=== PATIENT | female | born 1960 | race Caucasian/White ===

== ENCOUNTER 2019-09-22 18:39 | Observation (INO) | payer OTHER ==
--- NOTE | 2019-09-22 19:13 | ERPHSYRPT ---
- History of Present Illness Time Seen by Provider: 09/22/19 18:50 Historian: patient Exam Limitations: no limitations Patient Subjective Stated Complaint: Pt began having chest pains approx 1800 and it radiates to her left shoulder blade and down her back, pt states that she has been tested for Covid 2 x in the past 8 weeks and has went to [facility] clinic 8 x in the past 8 weeks, Triage Nursing Assessment: Pt brought to the ER by her , hypertensive, rates chest pain as 8/10, no edema, pulses normal, started thyroid medicine 8 weeks ago, skin w/n/d Physician History: Patient is a 59-year-old female presents to our ED with complaints of chest pain. Chest pain tends to radiate to her left shoulder and down her back. Symptoms started approximately 6 PM this evening. Pain described as an ache. No associated nausea vomiting or diaphoresis. Symptoms are mild to moderate in intensity. Patient currently rates chest pain at 8 out of 10. Patient appears comfortable. Patient declined pain medication. Patient advised staff that she has been feeling ill for the past 8 weeks. She has been tested for COVID multiple times. Results were negative. Patient also reports that her symptoms started 8 weeks ago at the same time that she was started on Synthroid. Patient voices no other complaints at this time. Timing/Duration: today Activities at Onset: none Quality: aching Location: substernal Severity of Pain-Max: moderate Severity of Pain-Current: moderate Modifying Factors: Improves With: nothing Associated Symptoms: denies symptoms Prior Chest Pain/Cardiac Workup: no prior chest pain Aspirin Treatment Today: 325 mg x 1 Allergies/Adverse Reactions: hydrocodone [From Vicodin] Allergy (Intermediate, Verified 09/22/19 18:58) Home Medications: Cholecalciferol (Vitamin D3) [Vitamin D3] 50 mcg PO DAILY 09/22/19 [History] Clonazepam 0.5 mg [Klonopin 0.5 MG] 0.5 mg PO BIDPRN PRN 09/22/19 [History ] Cyanocobalamin (Vitamin B-12) [Vitamin B12] 5,000 mcg PO DAILY 09/22/19 [History ] Ferrous Sulfate 325 mg [Feosol 325 mg] 325 mg PO DAILY 09/22/19 [History] Fluticasone Propionate [Flonase NASAL] 2 spray NS DAILY 09/22/19 [History] Levothyroxine Sodium 25 Mcg [Synthroid 25 Mcg] 25 mcg PO DAILY 09/22/19 [ History] Omeprazole 40 mg PO DAILY 09/22/19 [History] Hx Influenza Vaccination/Date Given: No Travel Risk - International Travel Have you traveled outside of the country in past 3 weeks: No Have you or anyone close to you been diagnosed with or: No Do your reside in a community with a known COVID-19 case?: Yes If Yes where:: [place] - Coronavirus Screening Has patient experienced Coronavirus symptoms: Yes Symptoms experienced: respiratory symptoms (i.e.Cought,shortness of breath) - Review of Systems Constitutional: No Symptoms, No Fever, No Chills Eyes: No Symptoms Ears, Nose, & Throat: No Symptoms Respiratory: No Symptoms, No Cough, No Dyspnea Cardiac: No Symptoms, No Chest Pain, No Edema, No Syncope Abdominal/Gastrointestinal: No Symptoms, No Abdominal Pain, No Nausea, No Vomiting, No Diarrhea Genitourinary Symptoms: No Symptoms, No Dysuria Musculoskeletal: No Symptoms, No Back Pain, No Neck Pain Skin: No Symptoms, No Rash Neurological: No Symptoms, No Dizziness, No Focal Weakness, No Sensory Changes Psychological: No Symptoms Endocrine: No Symptoms Hematologic/Lymphatic: No Symptoms Immunological/Allergic: No Symptoms All Other Systems: Reviewed and Negative - Past Medical History Pertinent Past Medical History: Yes Endocrine Medical History: Hypothyroidism Other Medical History: Mitral valve prolapse - Past Surgical History Past Surgical History: Yes Other Surgical History: veins stripping in legs. cyst removed from finger. rt foot surgery - Social History Smoking Status: Never smoker Exposure to second hand smoke: No Drug Use: none Patient Lives Alone: No - Nursing Vital Signs Nursing Vital Signs: Initial Vital Signs Temperature 97.8 F 09/22/19 18:40 Pulse Rate 88 09/22/19 18:40 Respiratory Rate 23 09/22/19 18:40 Blood Pressure 170/89 09/22/19 18:40 O2 Sat by Pulse Oximetry 98 09/22/19 18:40 Pain Scale Pain Intensity 3 - Physical Exam SpO2: 98 - Course Nursing assessment & vital signs reviewed: No EKG Interpreted by Me: RATE, Sinus Rhythm, NORMAL AXIS, NORMAL INTERVALS ( Septal lead depression posterior EKG ordered to assess for possible posterior wall STEMI.), Other - Radiology Exams Chest X-ray Interpretation: Interpreted by me (Thorax, no pneumonia, no pleural effusion. No fractures. No acute process observed.) Ordered Tests: Active Orders 24 hr Category Date Time Status Grocery Sacker STAT Care 09/22/19 18:47 Active EKG-ER Only STAT Care 09/22/19 18:46 Active IV Insertion STAT Care 09/22/19 18:46 Active Pulse Oximetry (ED) STAT Care 09/22/19 18:46 Active CHEST 1 VIEW (PORTABLE) Stat Exams 09/22/19 18:47 Taken CBC W DIFF Stat Lab 09/22/19 19:01 Completed CMP Stat Lab 09/22/19 19:01 Completed NT PRO BNP Stat Lab 09/22/19 19:01 Completed TROPONIN Q3H Lab 09/22/19 19:01 Completed TROPONIN Q3H Lab 09/22/19 22:00 Ordered TROPONIN Q3H Lab 09/23/19 01:00 Ordered TROPONIN Q3H Lab 09/23/19 04:00 Ordered TROPONIN Q3H Lab 09/23/19 07:00 Ordered TSH, 3RD Generation Stat Lab 09/22/19 19:10 Completed Lab/Rad Data: Laboratory Result Diagrams 09/22/19 19:01 09/22/19 19:01 Laboratory Results 09/22/19 09/22/19 09/22/19 Range/Units 19:10 19:01 19:01 WBC (4.0-10.5) K/mm3 RBC (4.1-5.4) M/mm3 Hgb (12.0-16.0) gm/dl Hct (35-47) % MCV (78-100) fl MCH (26-32) pg MCHC (32-36) g/dl RDW (11.5-14.0) % Plt Count (150-450) K/mm3 MPV (7.5-11.0) fl Gran % (36.0-66.0) % Eos # (Auto) (0-0.5) Absolute Lymphs (auto) (1.0-4.6) Absolute Monos (auto) (0.0-1.3) Lymphocytes % (24.0-44.0) % Monocytes % (0.0-12.0) % Eosinophils % (0.00-5.0) % Basophils % (0.0-0.4) % Absolute Granulocytes (1.4-6.9) Basophils # (0-0.4) Sodium 139 (137-145) mmol/L Potassium 4.3 (3.5-5.1) mmol/L Chloride 104 (98-107) mmol/L Carbon Dioxide 24 (22-30) mmol/L Anion Gap 15.2 H (5-15) MEQ/L BUN 12 (7-17) mg/dL Creatinine 0.85 (0.52-1.04) mg/dL Estimated GFR > 60.0 ML/MIN Glucose 116 H (74-106) mg/dL Calcium 9.1 (8.4-10.2) mg/dL Total Bilirubin 0.40 (0.2-1.3) mg/dL AST 20 (14-36) U/L ALT 16 (0-35) U/L Alkaline Phosphatase 65 (38-126) U/L Troponin I < 0.012 (0.000-0.034) ng/mL NT-Pro-B Natriuret Pep 88.8 (0-900) pg/mL Serum Total Protein 6.9 (6.3-8.2) g/dL Albumin 3.8 (3.5-5.0) g/dL TSH 3rd Generation 1.480 (0.47-4.68) mIU/L 09/22/19 Range/Units 19:01 WBC 12.0 H (4.0-10.5) K/mm3 RBC 4.57 (4.1-5.4) M/mm3 Hgb 13.2 (12.0-16.0) gm/dl Hct 39.6 (35-47) % MCV 86.7 (78-100) fl MCH 28.9 (26-32) pg MCHC 33.3 (32-36) g/dl RDW 13.9 (11.5-14.0) % Plt Count 348 (150-450) K/mm3 MPV 9.9 (7.5-11.0) fl Gran % 60.8 (36.0-66.0) % Eos # (Auto) 0.27 (0-0.5) Absolute Lymphs (auto) 3.46 (1.0-4.6) Absolute Monos (auto) 0.90 (0.0-1.3) Lymphocytes % 29.0 (24.0-44.0) % Monocytes % 7.5 (0.0-12.0) % Eosinophils % 2.3 (0.00-5.0) % Basophils % 0.4 (0.0-0.4) % Absolute Granulocytes 7.27 H (1.4-6.9) Basophils # 0.05 (0-0.4) Sodium (137-145) mmol/L Potassium (3.5-5.1) mmol/L Chloride (98-107) mmol/L Carbon Dioxide (22-30) mmol/L Anion Gap (5-15) MEQ/L BUN (7-17) mg/dL Creatinine (0.52-1.04) mg/dL Estimated GFR ML/MIN Glucose (74-106) mg/dL Calcium (8.4-10.2) mg/dL Total Bilirubin (0.2-1.3) mg/dL AST (14-36) U/L ALT (0-35) U/L Alkaline Phosphatase (38-126) U/L Troponin I (0.000-0.034) ng/mL NT-Pro-B Natriuret Pep (0-900) pg/mL Serum Total Protein (6.3-8.2) g/dL Albumin (3.5-5.0) g/dL TSH 3rd Generation (0.47-4.68) mIU/L - Progress Progress: improved Air Movement: good Progress Note: 09/22/19 20:28 Patient reassessed. She feels well. Patient declined pain medication. Case discussed with Dr. Goodman who accepts admission to observation for cardiac rule out. Plan of care discussed with patient. Patient agrees to admission to [facility] for further evaluation and treatment. Blood Culture(s) Obtained: No Antibiotics given: No Discussed with : Ashanti Will see patient in: hospital (observation) Counseled pt/family regarding: lab results, diagnosis, rad results - Departure Departure Disposition: Observation Clinical Impression: Acute coronary syndrome Condition: Stable Critical Care Time: No Referrals: TRACEY GUTIERREZ MD [Primary Care Provider] -
[2019-09-22 19:14] LABS: Absolute Neutrophil Ct (ANC) 7.27 (1.4-6.9); BASOPHIL % 0.4 % (0.0-0.4); Basophil (Absolute #) 0.05 (0-0.4); Eosinophil % 2.3 % (0.00-5.0); Eosinophil (Absolute #) 0.27 (0-0.5); Hematocrit 39.6 % (35-47); Hemoglobin 13.2 gm/dl (12.0-16.0); Lymphocyte (Absolute #) 3.46 (1.0-4.6); Mean Cell Volume 86.7 fl (78-100); Mean Corpuscular Hemoglobin 28.9 pg (26-32); Mean Corpuscular Hgb Concent. 33.3 g/dl (32-36); Mean Platelet Volume 9.9 fl (7.5-11.0); Monocytes % 7.5 % (0.0-12.0); Neutrophil % 60.8 % (36.0-66.0); Platelet Count 348 K/mm3 (150-450); Red Blood Count 4.57 M/mm3 (4.1-5.4); Red Cell Distribution Width 13.9 % (11.5-14.0)
[2019-09-22 19:36] LABS: ALBUMIN 3.8 g/dL (3.5-5.0); ALKALINE PHOSPHATASE 65 U/L (38-126); ANION GAP 15.2 MEQ/L (5-15); BLOOD UREA NITROGEN 12 mg/dL (7-17); CHLORIDE 104 mmol/L (98-107); Calcium 9.1 mg/dL (8.4-10.2); Carbon Dioxide 24 mmol/L (22-30); Creatinine 1 0.85 mg/dL (0.52-1.04); Glucose 116 mg/dL (74-106); NT PRO BNP 88.8 pg/mL (0-900); Potassium 4.3 mmol/L (3.5-5.1); SGOT/AST 20 U/L (14-36); SGPT/ALT 16 U/L (0-35); SODIUM 139 mmol/L (137-145); Total Protein 6.9 g/dL (6.3-8.2)
[2019-09-22] MEDS ORDERED: Zofran 4 MG/2 ML VIAL IV PRN (20:49)
[2019-09-22] MEDS ORDERED: MAALOX ES 30 ML UNIT DOSE PO PRN (20:49)
[2019-09-22] MEDS ORDERED: MILK OF MAGNESIA 30 ML PO PRN (20:49)
[2019-09-22] MEDS ORDERED: TYLENOL 325 MG PO PRN (20:49)
[2019-09-22] MEDS ORDERED: Senokot-S Tablet PO PRN (20:49)
[2019-09-22] MEDS ORDERED: Klonopin 0.5 MG PO PRN (23:02)
[2019-09-22] MEDS ORDERED: Zestril 10 MG ONE (23:04)
[2019-09-23 08:23] LABS: Risk Ratio 4.1
--- NOTE | 2019-09-23 08:25 | XRAY ---
Indication: Chest pain 8 weeks. Exhaustion. Comparison: None Portable chest demonstrates normal heart and lungs. Bony thorax intact with minimal degenerative changes.
[2019-09-23 12:02] VITALS: BP 130/60; PULSE 76; O2SAT 97
--- NOTE | 2019-09-23 12:15 | PCM.SSS ---
History of Present Illness - Chief Complaint Chief Complaint: acute coronary syndrome History of Present Illness: is a 59 year old female. sore throat slight cough 8 weeks ago. Increased phlegm. Covid test x2 prilosec flonase phlegm is better. Patient took mucinex night time burning chest pain Severe pain. Last night burning pain up arm down back. Tues. Started synthroid in jun. Side effects of synthroid. pain in arm chest pain bp 120/80. Never sick a day in her life and anxious. - Review of Systems Constitutional: Chills, Fatigue, Weight Loss (Lost 8 pounds ), No Fever, No Night Sweats Eyes: No Symptoms Ears, Nose, & Throat: Throat Swelling, Hoarse (in morning), No Hearing Changes, No Tinnitus, No Sinus Drainage, No Snoring Respiratory: No Cough, No Orthopnea, No Short Of Breath, No Wheezing Cardiac: Chest Pain, Palpitations, No Edema, No Syncope Abdominal/Gastrointestinal: Abdominal Pain, No Nausea, No Vomiting, No Diarrhea , No Constipation, No Dysphagia, No Appetite Changes Genitourinary Symptoms: No Dysuria Musculoskeletal: Back Pain, Joint Pain (Knee pain) Skin: No Cellulitis, No Rash, No Dryness Neurological: Headache, Tremors (mild tremors), No Parasthesia Psychological: Anxiety, No Alcohol Abuse, No Drug Abuse, No Depression, No Suicidal Ideations, No Homicidal Ideations Endocrine: Other (hypothyroidism) Hematologic/Lymphatic: Anemia Medications & Allergies Home Medications: Home Medication List Cholecalciferol (Vitamin D3) [Vitamin D3] 50 mcg PO DAILY 09/22/19 [History Confirmed 09/22/19] Clonazepam 0.5 mg [Klonopin 0.5 MG] 0.5 mg PO BIDPRN PRN 09/22/19 [ History Confirmed 09/22/19] Cyanocobalamin (Vitamin B-12) [Vitamin B12] 5,000 mcg PO DAILY 09/22/19 [ History Confirmed 09/22/19] Ferrous Sulfate 325 mg [Feosol 325 mg] 325 mg PO DAILY 09/22/19 [History Confirmed 09/22/19] Fluticasone Propionate [Flonase NASAL] 2 spray NS DAILY 09/22/19 [History Confirmed 09/22/19] Levothyroxine Sodium 25 Mcg [Synthroid 25 Mcg] 25 mcg PO DAILY 09/22/19 [ History Confirmed 09/22/19] Omeprazole 40 mg PO DAILY 09/22/19 [History Confirmed 09/22/19] Allergies/Adverse Reactions: Allergies Allergy/AdvReac Type Severity Reaction Status Date / Time hydrocodone [From Vicodin] Allergy Intermediate Verified 09/22/19 18:58 - Past Medical History Past Medical History: Yes Endocrine Medical History: Hypothyroidism Comment: Mitral valve prolapse - Female History Are you now?: No - Past Surgical History Past Surgical History: Yes Other Surgical History: veins stripping in legs. cyst removed from finger. rt foot surgery - Social History Smoking Status: Never smoker Exposure to second hand smoke: No Alcohol: Occasionally Drug Use: none - Physical Exam Vital Signs: Vital Signs - 24 hr Temp Pulse Resp BP Pulse Ox 09/23/19 12:00 98.8 F 76 14 130/60 97 09/23/19 08:00 96 09/23/19 07:23 98.5 F 65 18 134/63 96 09/23/19 04:00 98.8 F 64 14 116/66 99 09/23/19 02:00 98.7 F 68 18 109/65 99 09/23/19 00:00 68 16 96 09/22/19 21:27 98.5 F 72 16 170/82 95 09/22/19 20:33 98 09/22/19 20:33 84 20 172/86 98 09/22/19 20:25 81 18 161/88 98 09/22/19 19:43 79 15 158/95 97 09/22/19 19:05 98 09/22/19 18:40 97.8 F 88 23 170/89 98 Results - Labs Lab/Micro Results: Lab Results-Last 24 Hours 09/22/19 09/22/19 09/22/19 Range/Units 19:01 19:01 19:01 WBC 12.0 H (4.0-10.5) K/mm3 RBC 4.57 (4.1-5.4) M/mm3 Hgb 13.2 (12.0-16.0) gm/dl Hct 39.6 (35-47) % MCV 86.7 (78-100) fl MCH 28.9 (26-32) pg MCHC 33.3 (32-36) g/dl RDW 13.9 (11.5-14.0) % Plt Count 348 (150-450) K/mm3 MPV 9.9 (7.5-11.0) fl Gran % 60.8 (36.0-66.0) % Eos # (Auto) 0.27 (0-0.5) Absolute Lymphs (auto) 3.46 (1.0-4.6) Absolute Monos (auto) 0.90 (0.0-1.3) Lymphocytes % 29.0 (24.0-44.0) % Monocytes % 7.5 (0.0-12.0) % Eosinophils % 2.3 (0.00-5.0) % Basophils % 0.4 (0.0-0.4) % Absolute Granulocytes 7.27 H (1.4-6.9) Basophils # 0.05 (0-0.4) Sodium 139 (137-145) mmol/L Potassium 4.3 (3.5-5.1) mmol/L Chloride 104 (98-107) mmol/L Carbon Dioxide 24 (22-30) mmol/L Anion Gap 15.2 H (5-15) MEQ/L BUN 12 (7-17) mg/dL Creatinine 0.85 (0.52-1.04) mg/dL Estimated GFR > 60.0 ML/MIN Glucose 116 H (74-106) mg/dL Calcium 9.1 (8.4-10.2) mg/dL Total Bilirubin 0.40 (0.2-1.3) mg/dL AST 20 (14-36) U/L ALT 16 (0-35) U/L Alkaline Phosphatase 65 (38-126) U/L Troponin I < 0.012 (0.000-0.034) ng/mL NT-Pro-B Natriuret Pep 88.8 (0-900) pg/mL Serum Total Protein 6.9 (6.3-8.2) g/dL Albumin 3.8 (3.5-5.0) g/dL Triglycerides (30-150) mg/dL Cholesterol (50-200) mg/dL LDL Cholesterol (30-100) mg/dL HDL Cholesterol (40-60) mg/dL Heart Disease Risk Ratio TSH 3rd Generation (0.47-4.68) mIU/L 09/22/19 09/22/19 09/23/19 Range/Units 19:10 22:25 01:27 WBC (4.0-10.5) K/mm3 RBC (4.1-5.4) M/mm3 Hgb (12.0-16.0) gm/dl Hct (35-47) % MCV (78-100) fl MCH (26-32) pg MCHC (32-36) g/dl RDW (11.5-14.0) % Plt Count (150-450) K/mm3 MPV (7.5-11.0) fl Gran % (36.0-66.0) % Eos # (Auto) (0-0.5) Absolute Lymphs (auto) (1.0-4.6) Absolute Monos (auto) (0.0-1.3) Lymphocytes % (24.0-44.0) % Monocytes % (0.0-12.0) % Eosinophils % (0.00-5.0) % Basophils % (0.0-0.4) % Absolute Granulocytes (1.4-6.9) Basophils # (0-0.4) Sodium (137-145) mmol/L Potassium (3.5-5.1) mmol/L Chloride (98-107) mmol/L Carbon Dioxide (22-30) mmol/L Anion Gap (5-15) MEQ/L BUN (7-17) mg/dL Creatinine (0.52-1.04) mg/dL Estimated GFR ML/MIN Glucose (74-106) mg/dL Calcium (8.4-10.2) mg/dL Total Bilirubin (0.2-1.3) mg/dL AST (14-36) U/L ALT (0-35) U/L Alkaline Phosphatase (38-126) U/L Troponin I < 0.012 < 0.012 (0.000-0.034) ng/mL NT-Pro-B Natriuret Pep (0-900) pg/mL Serum Total Protein (6.3-8.2) g/dL Albumin (3.5-5.0) g/dL Triglycerides (30-150) mg/dL Cholesterol (50-200) mg/dL LDL Cholesterol (30-100) mg/dL HDL Cholesterol (40-60) mg/dL Heart Disease Risk Ratio TSH 3rd Generation 1.480 (0.47-4.68) mIU/L 09/23/19 09/23/19 09/23/19 Range/Units 04:15 07:12 07:12 WBC (4.0-10.5) K/mm3 RBC (4.1-5.4) M/mm3 Hgb (12.0-16.0) gm/dl Hct (35-47) % MCV (78-100) fl MCH (26-32) pg MCHC (32-36) g/dl RDW (11.5-14.0) % Plt Count (150-450) K/mm3 MPV (7.5-11.0) fl Gran % (36.0-66.0) % Eos # (Auto) (0-0.5) Absolute Lymphs (auto) (1.0-4.6) Absolute Monos (auto) (0.0-1.3) Lymphocytes % (24.0-44.0) % Monocytes % (0.0-12.0) % Eosinophils % (0.00-5.0) % Basophils % (0.0-0.4) % Absolute Granulocytes (1.4-6.9) Basophils # (0-0.4) Sodium (137-145) mmol/L Potassium (3.5-5.1) mmol/L Chloride (98-107) mmol/L Carbon Dioxide (22-30) mmol/L Anion Gap (5-15) MEQ/L BUN (7-17) mg/dL Creatinine (0.52-1.04) mg/dL Estimated GFR ML/MIN Glucose (74-106) mg/dL Calcium (8.4-10.2) mg/dL Total Bilirubin (0.2-1.3) mg/dL AST (14-36) U/L ALT (0-35) U/L Alkaline Phosphatase (38-126) U/L Troponin I < 0.012 < 0.012 (0.000-0.034) ng/mL NT-Pro-B Natriuret Pep (0-900) pg/mL Serum Total Protein (6.3-8.2) g/dL Albumin (3.5-5.0) g/dL Triglycerides 236 H (30-150) mg/dL Cholesterol 171 (50-200) mg/dL LDL Cholesterol 42 (30-100) mg/dL HDL Cholesterol 42 (40-60) mg/dL Heart Disease Risk Ratio 4.1 TSH 3rd Generation (0.47-4.68) mIU/L - Radiology Impressions Radiology Exams & Impressions: Radiology Procedures Category Date Time Status CHEST 1 VIEW (PORTABLE) Stat Exams 09/22/19 18:47 Completed - Other Procedures and Tests Respiratory Therapy 09/24/19 05:00 EKG ROUTINE 09/25/19 05:00 EKG ROUTINE 09/26/19 05:00 EKG ROUTINE Hospital Summary - Vitals & Intake/Output Vital Signs: Vital Signs Temperature 98.8 F 09/23/19 12:00 Pulse Rate 76 09/23/19 12:00 Respiratory Rate 14 09/23/19 12:00 Blood Pressure 130/60 09/23/19 12:00 O2 Sat by Pulse Oximetry 97 09/23/19 12:00 Intake & Output: Intake & Output 09/21/19 09/22/19 09/23/19 09/24/19 11:59 11:59 11:59 11:59 Intake Total 480 Balance 480 Weight 81 kg - Lab Result Diagrams: 09/22/19 19:01 09/22/19 19:01 Lab Results-Last 24 Hrs: Lab Results-Last 24 Hours 09/22/19 09/22/19 09/22/19 Range/Units 19:01 19:01 19:01 WBC 12.0 H (4.0-10.5) K/mm3 RBC 4.57 (4.1-5.4) M/mm3 Hgb 13.2 (12.0-16.0) gm/dl Hct 39.6 (35-47) % MCV 86.7 (78-100) fl MCH 28.9 (26-32) pg MCHC 33.3 (32-36) g/dl RDW 13.9 (11.5-14.0) % Plt Count 348 (150-450) K/mm3 MPV 9.9 (7.5-11.0) fl Gran % 60.8 (36.0-66.0) % Eos # (Auto) 0.27 (0-0.5) Absolute Lymphs (auto) 3.46 (1.0-4.6) Absolute Monos (auto) 0.90 (0.0-1.3) Lymphocytes % 29.0 (24.0-44.0) % Monocytes % 7.5 (0.0-12.0) % Eosinophils % 2.3 (0.00-5.0) % Basophils % 0.4 (0.0-0.4) % Absolute Granulocytes 7.27 H (1.4-6.9) Basophils # 0.05 (0-0.4) Sodium 139 (137-145) mmol/L Potassium 4.3 (3.5-5.1) mmol/L Chloride 104 (98-107) mmol/L Carbon Dioxide 24 (22-30) mmol/L Anion Gap 15.2 H (5-15) MEQ/L BUN 12 (7-17) mg/dL Creatinine 0.85 (0.52-1.04) mg/dL Estimated GFR > 60.0 ML/MIN Glucose 116 H (74-106) mg/dL Calcium 9.1 (8.4-10.2) mg/dL Total Bilirubin 0.40 (0.2-1.3) mg/dL AST 20 (14-36) U/L ALT 16 (0-35) U/L Alkaline Phosphatase 65 (38-126) U/L Troponin I < 0.012 (0.000-0.034) ng/mL NT-Pro-B Natriuret Pep 88.8 (0-900) pg/mL Serum Total Protein 6.9 (6.3-8.2) g/dL Albumin 3.8 (3.5-5.0) g/dL Triglycerides (30-150) mg/dL Cholesterol (50-200) mg/dL LDL Cholesterol (30-100) mg/dL HDL Cholesterol (40-60) mg/dL Heart Disease Risk Ratio TSH 3rd Generation (0.47-4.68) mIU/L 09/22/19 09/22/19 09/23/19 Range/Units 19:10 22:25 01:27 WBC (4.0-10.5) K/mm3 RBC (4.1-5.4) M/mm3 Hgb (12.0-16.0) gm/dl Hct (35-47) % MCV (78-100) fl MCH (26-32) pg MCHC (32-36) g/dl RDW (11.5-14.0) % Plt Count (150-450) K/mm3 MPV (7.5-11.0) fl Gran % (36.0-66.0) % Eos # (Auto) (0-0.5) Absolute Lymphs (auto) (1.0-4.6) Absolute Monos (auto) (0.0-1.3) Lymphocytes % (24.0-44.0) % Monocytes % (0.0-12.0) % Eosinophils % (0.00-5.0) % Basophils % (0.0-0.4) % Absolute Granulocytes (1.4-6.9) Basophils # (0-0.4) Sodium (137-145) mmol/L Potassium (3.5-5.1) mmol/L Chloride (98-107) mmol/L Carbon Dioxide (22-30) mmol/L Anion Gap (5-15) MEQ/L BUN (7-17) mg/dL Creatinine (0.52-1.04) mg/dL Estimated GFR ML/MIN Glucose (74-106) mg/dL Calcium (8.4-10.2) mg/dL Total Bilirubin (0.2-1.3) mg/dL AST (14-36) U/L ALT (0-35) U/L Alkaline Phosphatase (38-126) U/L Troponin I < 0.012 < 0.012 (0.000-0.034) ng/mL NT-Pro-B Natriuret Pep (0-900) pg/mL Serum Total Protein (6.3-8.2) g/dL Albumin (3.5-5.0) g/dL Triglycerides (30-150) mg/dL Cholesterol (50-200) mg/dL LDL Cholesterol (30-100) mg/dL HDL Cholesterol (40-60) mg/dL Heart Disease Risk Ratio TSH 3rd Generation 1.480 (0.47-4.68) mIU/L 09/23/19 09/23/19 09/23/19 Range/Units 04:15 07:12 07:12 WBC (4.0-10.5) K/mm3 RBC (4.1-5.4) M/mm3 Hgb (12.0-16.0) gm/dl Hct (35-47) % MCV (78-100) fl MCH (26-32) pg MCHC (32-36) g/dl RDW (11.5-14.0) % Plt Count (150-450) K/mm3 MPV (7.5-11.0) fl Gran % (36.0-66.0) % Eos # (Auto) (0-0.5) Absolute Lymphs (auto) (1.0-4.6) Absolute Monos (auto) (0.0-1.3) Lymphocytes % (24.0-44.0) % Monocytes % (0.0-12.0) % Eosinophils % (0.00-5.0) % Basophils % (0.0-0.4) % Absolute Granulocytes (1.4-6.9) Basophils # (0-0.4) Sodium (137-145) mmol/L Potassium (3.5-5.1) mmol/L Chloride (98-107) mmol/L Carbon Dioxide (22-30) mmol/L Anion Gap (5-15) MEQ/L BUN (7-17) mg/dL Creatinine (0.52-1.04) mg/dL Estimated GFR ML/MIN Glucose (74-106) mg/dL Calcium (8.4-10.2) mg/dL Total Bilirubin (0.2-1.3) mg/dL AST (14-36) U/L ALT (0-35) U/L Alkaline Phosphatase (38-126) U/L Troponin I < 0.012 < 0.012 (0.000-0.034) ng/mL NT-Pro-B Natriuret Pep (0-900) pg/mL Serum Total Protein (6.3-8.2) g/dL Albumin (3.5-5.0) g/dL Triglycerides 236 H (30-150) mg/dL Cholesterol 171 (50-200) mg/dL LDL Cholesterol 42 (30-100) mg/dL HDL Cholesterol 42 (40-60) mg/dL Heart Disease Risk Ratio 4.1 TSH 3rd Generation (0.47-4.68) mIU/L - Radiology Exams Ordered Rad Exams-Entire Visit: Radiology Procedures Category Date Time Status CHEST 1 VIEW (PORTABLE) Stat Exams 09/22/19 18:47 Completed - Procedures and Test Procedures and Tests throughout Hospitalization: Therapy Orders & Screens 09/23/19 03:02 EKG ROUTINE Comment: Diagnosis: acs 09/24/19 05:00 EKG ROUTINE Comment: Diagnosis: acs 09/25/19 05:00 EKG ROUTINE Comment: Diagnosis: acs 09/26/19 05:00 EKG ROUTINE Comment: Diagnosis: acs - Discharge Disposition: Home, Self-Care Condition: Stable Prescriptions: Continue Ferrous Sulfate 325 mg [Feosol 325 mg] 325 mg PO DAILY Cholecalciferol (Vitamin D3) [Vitamin D3] 50 mcg PO DAILY Clonazepam 0.5 mg [Klonopin 0.5 MG] 0.5 mg PO BIDPRN PRN PRN Reason: Anxiety Levothyroxine Sodium 25 Mcg [Synthroid 25 Mcg] 25 mcg PO DAILY Fluticasone Propionate [Flonase NASAL] 2 spray NS DAILY Omeprazole 40 mg PO DAILY Cyanocobalamin (Vitamin B-12) [Vitamin B12] 5,000 mcg PO DAILY Instructions: Hypothyroidism (Underactive Thyroid), Chest Pain That Is Not Caused by the Heart (DC), Generalized Anxiety Disorder (DC) Additional Instructions: Patient has an appt at [address] Sanchez. Patient needs CHRIS with reflex drawn prior to discharge Follow up with: DORIAN GREER MD [Primary Care Provider] - 1 Week
[2019-09-23] MEDS ORDERED: Zestril 10 MG PO ONE (22:19)
[2019-09-24 14:02] LABS: ANA Pattern Interp Detail See Result Note:
== END 2019-09-23 13:14 | disposition home or self-care (01) ==
LOC: ED 18:39 → MED SURG 20:43
PROVIDERS: ADMIT Family Medicine; ATTEND Family Medicine
DX: I24.9 Acute ischemic heart disease, unspecified (principal); I10 Essential (primary) hypertension; R53.83 Other fatigue; R68.83 Chills (without fever); F41.9 Anxiety disorder, unspecified; E03.9 Hypothyroidism, unspecified; R63.4 Abnormal weight loss; R25.1 Tremor, unspecified; I34.1 Nonrheumatic mitral (valve) prolapse; R51 Headache; D64.9 Anemia, unspecified; Z79.899 Other long term (current) drug therapy
CPT/HCPCS: 36000; 36415; 71045; 80053; 80061; 83721; 83880; 84443; 84484; 85025; 86038; 86039; 93005; 93041; 93268; 94760; 99285; G0378; J2405; A9270-GY

== ENCOUNTER 2020-04-05 08:57 | Day surgery (SDC) | payer OTHER ==
[2020-04-05] MEDS ORDERED: Depo-Medrol 40 MG/ML IM ONE (08:58)
[2020-04-05] MEDS ORDERED: BUPIVACAINE 0.5% VIAL IJ ONE (08:58)
[2020-04-05] MEDS ORDERED: DIPRIVAN 200 MG/20 ML IV ONE (10:34)
[2020-04-05] MEDS ORDERED: Ketamine HCl 50 MG/ML ONE (10:34)
--- NOTE | 2020-04-05 11:17 | XRAY ---
20 seconds fluoroscopy time in surgery for right SI joint injection.
--- NOTE | 2020-04-05 11:17 | XRAY ---
Indication: Right SI joint injection. Intraoperative fluoroscopy was provided for 20 seconds. 2 digital spot images submitted for interpretation demonstrates posterior needle tip projecting over the inferior right SI joint. Correlate with intraoperative findings/report.
[2020-04-05] MEDS ORDERED: Lactated Ringers 1,000 ML IV ONE (15:42)
== END 2020-04-05 11:06 | disposition home or self-care (01) ==
LOC: SDC-PAIN 08:57
PROVIDERS: ATTEND Psychiatry & Neurology Pain Medicine
DX: M46.1 Sacroiliitis, not elsewhere classified (principal)
CPT/HCPCS: 27096; 72020; 77002; J1030; J2704; G0260

== ENCOUNTER 2020-10-25 10:16 | Day surgery (SDC) | payer OTHER ==
[2020-10-25] MEDS ORDERED: Sodium Chloride 0.9(Preservative Free) 10 ML IJ ONE (10:17)
[2020-10-25] MEDS ORDERED: Xylocaine 1% Vial 30 ML PF IJ ONE (10:17)
[2020-10-25] MEDS ORDERED: Decadron 4 MG INJ IV ONE (10:17)
[2020-10-25] MEDS ORDERED: Depo-Medrol 40 MG/ML IM ONE (10:17)
--- NOTE | 2020-10-25 13:15 | XRAY ---
Indication: Right L4-S1 transforaminal EVA. Intraoperative fluoroscopy provided for 22 seconds. 3 digital spot images submitted for interpretation demonstrate posterior needle tips projecting of the expected right L4 and L5 nerve roots. Small amount of contrast injected for needle tip placement. Correlate with intraoperative findings/report.
--- NOTE | 2020-10-25 13:25 | XRAY ---
Indication: Right piriformis injection. Intraoperative fluoroscopy provided for 9 seconds. Single digital spot images obtained prone submitted for interpretation demonstrate posterior needle tip projecting over the expected right piriformis muscle. Small amount of contrast injected for needle tip placement. Correlate with intraoperative findings/report.
--- NOTE | 2020-10-25 14:17 | XRAY ---
22 seconds fluoroscopy time in surgery for right L4-S1 transforaminal EVA.
--- NOTE | 2020-10-25 14:17 | XRAY ---
9 seconds fluoroscopy time in surgery for right piriformis muscle injection.
[2020-10-25] MEDS ORDERED: Lactated Ringers 1,000 ML IV ONE (15:40)
== END 2020-10-25 13:01 | disposition home or self-care (01) ==
LOC: SDC-PAIN 10:16
PROVIDERS: ATTEND Psychiatry & Neurology Pain Medicine
DX: M54.16 Radiculopathy, lumbar region (principal); M79.18 Myalgia, other site; F41.9 Anxiety disorder, unspecified; F32.9 Major depressive disorder, single episode, unspecified; M19.90 Unspecified osteoarthritis, unspecified site
CPT/HCPCS: 20550; 64483; 64484; 72020; 72100; 77002; 77003; J1030; J1100; J2001; Q9966

== ENCOUNTER 2025-02-21 12:46 | Emergency (ER) | payer MEDICARE ==
--- NOTE | 2025-02-21 12:49 | ERPHSYRPT ---
- History of Present Illness Time Seen by Provider: 02/21/25 12:49 Historian: patient Exam Limitations: no limitations Physician History: Patient presents with shortness of breath with exertion. Her dyspnea started yesterday while working out in the yard, but has become worse to the point she feels like she cannot catch her breath. She reports a sensation of chest heaviness but no chest pain. Denies lower extremity edema. Denies abdominal pain, fever or chills. No recent illness. No cough or congestion. Prior Chest Pain/Cardiac Workup: no prior chest pain Nitro Today/Relief: no nitro taken today Aspirin Treatment Today: 81 mg x 4, provided by ED Allergies/Adverse Reactions: hydrocodone [From Vicodin] Allergy (Intermediate, Verified 02/21/25 12:47) Hx Influenza Vaccination/Date Given: No - Review of Systems All Other Systems: Reviewed and Negative - Past Medical History Neurological History: No Pertinent History Cardiac History: No Pertinent History Respiratory History: No Pertinent History Endocrine Medical History: No Pertinent History Musculoskeletal History: Degenerative Disk Disease, Osteoarthritis - Past Surgical History Past Surgical History: Yes Other Surgical History: veins stripping in legs. cyst removed from finger. rt foot surgery - Social History Smoking Status: Never smoker Exposure to second hand smoke: No Drug Use: none - Nursing Vital Signs Nursing Vital Signs: Initial Vital Signs Pulse Rate 63 02/21/25 12:45 Respiratory Rate 15 02/21/25 12:45 Blood Pressure 159/121 02/21/25 12:45 O2 Sat by Pulse Oximetry 100 02/21/25 12:45 Pain Scale Pain Intensity 0 - Physical Exam General Appearance: mild distress Neck Exam: normal inspection, supple, full range of motion Respiratory Exam: normal breath sounds, lungs clear, airway intact, No respiratory distress Cardiovascular Exam: regular rate/rhythm, normal heart sounds, capillary refill <2 sec, No edema Gastrointestinal/Abdomen Exam: soft, No tenderness, No distention Neurologic Exam: alert, oriented x 3, cooperative SpO2 Interpretation: normal O2 Delivery: Room Air - Course Nursing assessment & vital signs reviewed: Yes EKG Interpreted by Me: RATE (64), Sinus Rhythm, NORMAL AXIS, NORMAL INTERVALS, NORMAL QRS, Non-specific ST Changes Ordered Tests: Active Orders 24 hr Category Date Time Status Plate Slitter And Inspector STAT Care 02/21/25 12:57 Completed EKG-ER Only STAT Care 02/21/25 12:54 Completed IV Insertion STAT Care 02/21/25 12:54 Completed CHEST 1 VIEW (PORTABLE) Stat Exams 02/21/25 12:56 Completed CBC W DIFF Stat Lab 02/21/25 13:20 Completed CMP Stat Lab 02/21/25 13:20 Completed D-DIMER QUANTITATIVE Routine Lab 02/21/25 13:20 Completed MAGNESIUM Stat Lab 02/21/25 13:20 Completed NT PRO BNPII Stat Lab 02/21/25 13:20 Completed PROCALCITONIN Stat Lab 02/21/25 13:20 Completed TROPONIN Stat Lab 02/21/25 13:20 Completed TSH, 3RD Generation Routine Lab 02/21/25 13:20 Completed Urine Triage Profile Stat Lab 02/21/25 12:56 Completed Medication Summary Discontinued Medications Generic Name Dose Route Start Last Admin Trade Name Guillermo PRN Reason Stop Dose Admin Aspirin 324 mg 02/21/25 12:54 02/21/25 13:23 Aspirin 81 Mg Tab.Chew PO 02/21/25 12:55 324 mg STAT ONE Administration Aspirin Confirm 02/21/25 13:12 Aspirin 81 Mg Tab.Chew Administered 02/21/25 13:13 Dose 324 mg .ROUTE .[facility] ONE Lab/Rad Data: Laboratory Result Diagrams 02/21/25 13:20 02/21/25 13:20 Laboratory Results 02/21/25 02/21/25 02/21/25 Range/Units 13:20 13:20 13:20 WBC 9.3 (3.98-10.04) x10^3/uL RBC 4.71 (3.93-5.22) x10^6/uL Hgb 13.1 (11.2-15.7) g/dL Hct 40.5 (34.1-44.9) % MCV 86.0 (79.4-94.8) fL MCH 27.8 (25.6-32.2) pg MCHC 32.3 (32.2-35.5) g/dL RDW 13.4 (11.7-14.4) % Plt Count 305 (182-369) x10^3/uL MPV 10.1 (9.4-12.3) fL Gran % 54.0 (34.0-71.1) % Immature Gran % (Auto) 0.2 (0.001-0.429) % Nucleat RBC Rel Count 0.0 (0.00-0.2) % Eos # (Auto) 0.15 (0.04-0.36) x10^3/uL Immature Gran # (Auto) 0.02 (0.001-0.031) x10^3u/L Absolute Lymphs (auto) 3.42 (1.18-3.74) x10^3/uL Absolute Monos (auto) 0.62 (0.24-0.86) x10^3/uL Absolute Nucleated RBC 0.00 (0.00-0.012) x10^3u/L Lymphocytes % 36.9 (19.3-51.7) % Monocytes % 6.7 (4.7-12.5) % Eosinophils % 1.6 (0.7-5.8) % Basophils % 0.6 (0.1-1.2) % Absolute Granulocytes 5.01 (1.56-6.13) x10^3/uL Basophils # 0.06 (0.01-0.08) x10^3/uL D-Dimer 0.37 (0.0-0.50) mg/L Sodium (135-145) mmol/L Potassium (3.5-5.1) mmol/L Chloride (98-107) mmol/L Carbon Dioxide (22-30) mmol/L Anion Gap (5-15) MEQ/L BUN (7-17) mg/dL Creatinine (0.52-1.04) mg/dL Estimated GFR ML/MIN Glucose (74-106) mg/dL Calcium (8.4-10.2) mg/dL Magnesium (1.6-2.3) mg/dL Total Bilirubin (0.2-1.3) mg/dL AST (14-36) U/L ALT (0-35) U/L Alkaline Phosphatase (38-126) U/L Troponin I (0.000-0.033) ng/mL NT-Pro-B Natriuret Pep (<300) pg/mL Serum Total Protein (6.3-8.2) g/dL Albumin (3.5-5.0) g/dL Procalcitonin (0.030-0.080) ng/mL Free T4 1.40 (0.78-2.19) ng/dL TSH 3rd Generation (0.470-4.680) mIU/L Urine Opiates Level (NEGATIVE) Ur Methadone (NEGATIVE) Urine Barbiturates (NEGATIVE) Ur Phencyclidine (PCP) (NEGATIVE) Urine Amphetamine (NEGATIVE) U Benzodiazepine Level (NEGATIVE) Urine Cocaine (NEGATIVE) Urine Marijuana (THC) (NEGATIVE) 02/21/25 02/21/25 02/21/25 Range/Units 13:20 13:20 12:56 WBC (3.98-10.04) x10^3/uL RBC (3.93-5.22) x10^6/uL Hgb (11.2-15.7) g/dL Hct (34.1-44.9) % MCV (79.4-94.8) fL MCH (25.6-32.2) pg MCHC (32.2-35.5) g/dL RDW (11.7-14.4) % Plt Count (182-369) x10^3/uL MPV (9.4-12.3) fL Gran % (34.0-71.1) % Immature Gran % (Auto) (0.001-0.429) % Nucleat RBC Rel Count (0.00-0.2) % Eos # (Auto) (0.04-0.36) x10^3/uL Immature Gran # (Auto) (0.001-0.031) x10^3u/L Absolute Lymphs (auto) (1.18-3.74) x10^3/uL Absolute Monos (auto) (0.24-0.86) x10^3/uL Absolute Nucleated RBC (0.00-0.012) x10^3u/L Lymphocytes % (19.3-51.7) % Monocytes % (4.7-12.5) % Eosinophils % (0.7-5.8) % Basophils % (0.1-1.2) % Absolute Granulocytes (1.56-6.13) x10^3/uL Basophils # (0.01-0.08) x10^3/uL D-Dimer (0.0-0.50) mg/L Sodium 138 (135-145) mmol/L Potassium 4.2 (3.5-5.1) mmol/L Chloride 103 (98-107) mmol/L Carbon Dioxide 26 (22-30) mmol/L Anion Gap 13.2 (5-15) MEQ/L BUN 21 H (7-17) mg/dL Creatinine 1.12 H (0.52-1.04) mg/dL Estimated GFR 54.2 ML/MIN Glucose 101 (74-106) mg/dL Calcium 9.4 (8.4-10.2) mg/dL Magnesium 1.9 (1.6-2.3) mg/dL Total Bilirubin 0.30 (0.2-1.3) mg/dL AST 27 (14-36) U/L ALT 24 (0-35) U/L Alkaline Phosphatase 80 (38-126) U/L Troponin I < 0.012 (0.000-0.033) ng/mL NT-Pro-B Natriuret Pep 83.8 (<300) pg/mL Serum Total Protein 7.6 (6.3-8.2) g/dL Albumin 4.3 (3.5-5.0) g/dL Procalcitonin 0.043 (0.030-0.080) ng/mL Free T4 (0.78-2.19) ng/dL TSH 3rd Generation 1.085 (0.470-4.680) mIU/L Urine Opiates Level NEGATIVE (NEGATIVE) Ur Methadone NEGATIVE (NEGATIVE) Urine Barbiturates NEGATIVE (NEGATIVE) Ur Phencyclidine (PCP) NEGATIVE (NEGATIVE) Urine Amphetamine NEGATIVE (NEGATIVE) U Benzodiazepine Level NEGATIVE (NEGATIVE) Urine Cocaine NEGATIVE (NEGATIVE) Urine Marijuana (THC) NEGATIVE (NEGATIVE) - Progress Progress: improved Air Movement: good Progress Note: This patient presents with exertional dyspnea and chest pressure. Exam without evidence of volume overload. EKG without signs of active ischemia. HEART score: 3. Given the timing of pain to ER presentation, plan to send single troponin to evaluate for NSTEMI. Presentation not consistent with acute PE, pneumothorax, thoracic arotic dissection, cardiac effusion or tamponade. Plan: labs, troponin, EKG, CXR, ASA, pain control, serial reassessment labs unremarkable, trop neg, EKG unremarkable, CXR neg. Patient's dyspnea greatly improved. Stressed importance of follow up for stress test. Patient agreeable. Blood Culture(s) Obtained: No Antibiotics given: No Counseled pt/family regarding: lab results, diagnosis, need for follow-up, rad results Medical Desision Making - Diagnostic Testing Diagnostic test were ordered, analyzed, and reviewed by me: Yes Radiological Interpretation: Interpreted by me, Reviewed by me, Teleradiologist Report - Risk of complications The pt has a mod risk of morbidity or mortality based on: Need for prescription drug management - Departure Departure Disposition: Home Clinical Impression: Chest pain Condition: Stable Critical Care Time: No Referrals: TRACEY GUTIERREZ MD [Primary Care Provider, [facility]] - Follow up/PCP as directed Instructions: Chest Pain (DC) Prescriptions: Nitroglycerin 0.4 mg Tablet [Nitrostat 0.4 MG Tablet] 0.4 mg SL Q5MIN PRN MR X 3 PRN 5 Days #15 tablet PRN Reason: Chest Pain
[2025-02-21 12:53] VITALS: BP 159/121; TEMP 97.1
[2025-02-21] MEDS ORDERED: BABY ASPIRIN 81 MG CHEW ONE (13:12)
--- NOTE | 2025-02-21 13:17 | XRAY ---
Indication: Short of breath. Comparison: September 22, 2019 Portable chest again demonstrates normal heart and lungs. Bony thorax intact. No new/acute findings.
[2025-02-21] MEDS: BABY ASPIRIN 81 MG CHEW PO ONE (13:23)
[2025-02-21 13:26] LABS: BASOPHIL % 0.6 % (0.1-1.2); Basophil (Absolute #) 0.06 x10^3/uL (0.01-0.08); Eosinophil (Absolute #) 0.15 x10^3/uL (0.04-0.36); Hematocrit 40.5 % (34.1-44.9); Hemoglobin 13.1 g/dL (11.2-15.7); IMMATURE GRAN # 0.02 x10^3u/L (0.001-0.031); IMMATURE GRAN % 0.2 % (0.001-0.429); Lymphocyte (Absolute #) 3.42 x10^3/uL (1.18-3.74); Mean Corpuscular Hemoglobin 27.8 pg (25.6-32.2); Mean Corpuscular Hgb Concent. 32.3 g/dL (32.2-35.5); Monocyte (Absolute #) 0.62 x10^3/uL (0.24-0.86); NUCLEATED RBC # 0.00 x10^3u/L (0.00-0.012); NUCLEATED RBC % 0.0 % (0.00-0.2); Platelet Count 305 x10^3/uL (182-369); Red Blood Count 4.71 x10^6/uL (3.93-5.22); White Blood Count 9.3 x10^3/uL (3.98-10.04)
[2025-02-21 14:04] VITALS: PULSE 61; RESP 20; O2SAT 98
[2025-02-21 14:09] LABS: Amphetamine,Urine NEGATIVE (NEGATIVE); Barbiturate,Urine NEGATIVE (NEGATIVE); Benzodiazepine,Urine NEGATIVE (NEGATIVE); Cocaine,Urine NEGATIVE (NEGATIVE); Methadone,Urine NEGATIVE (NEGATIVE); Opiate,Urine NEGATIVE (NEGATIVE); PCP,Urine NEGATIVE (NEGATIVE); THC,Urine NEGATIVE (NEGATIVE)
[2025-02-21 14:27] LABS: Calcium 9.4 mg/dL (8.4-10.2); Carbon Dioxide 26 mmol/L (22-30); Creatinine 1 1.12 mg/dL (0.52-1.04); EST GLOMERULAR FILTRATION RATE 54.2 ML/MIN; Glucose 101 mg/dL (74-106); NT PRO BNPII 83.8 pg/mL (<300); Potassium 4.2 mmol/L (3.5-5.1); SGOT/AST 27 U/L (14-36); SGPT/ALT 24 U/L (0-35); TROPONIN < 0.012 ng/mL (0.000-0.033); Total Protein 7.6 g/dL (6.3-8.2)
== END 2025-02-21 14:51 | disposition home or self-care (01) ==
LOC: ED 12:46
DX: R07.9 Chest pain, unspecified (principal); R06.02 Shortness of breath